=== PATIENT | male | born 1975 | race Caucasian/White ===

== ENCOUNTER 2020-06-13 14:51 | Inpatient (IN) | payer OTHER, SELFPAY ==
[2020-06-13] VITALS (16 sets, daily range): BP systolic 114–151; BP diastolic 73–98; PULSE 62–108; RESP 12–20; TEMP 36.2–36.8; O2SAT 94–99; BMI 26.4; BMI 25.8
--- NOTE | 2020-06-13 14:56 | NURSING ---
NO OLD EKGS
--- NOTE | 2020-06-13 15:03 | EKG12_ITS ---
Test Reason : NEURO Blood Pressure : / mmHG Vent. Rate : 091 BPM Atrial Rate : 091 BPM P-R Int : 160 ms QRS Dur : 092 ms QT Int : 364 ms P-R-T Axes : 064 057 035 degrees QTc Int : 447 ms Normal sinus rhythm with sinus arrhythmia Normal ECG Confirmed by JUANA MANDUJANO, AYAH ([id number]), restaurant expeditor ALEXIS COFFEY ([id number]) on 06/17/2020 12:57:43 PM Referred By: MARIFER Confirmed By:AYAH ARIAS MD
--- NOTE | 2020-06-13 15:03 | CT_ITS ---
We are attempting to reach an attending provider to discuss findings. An addendum with communication details will be sent when the communication is complete. STUDY: CT BRAIN WITHOUT CONTRAST REASON FOR EXAM: Male, 44 years old. RT LEG WEAKNESS LAST NIGHT AT 1700,SOB, HTN RADIATION DOSAGE (If Supplied By Facility): CTDIvol = ( 44.99 ) mGy, DLP = ( 796.11 ) mGycm TECHNIQUE: Transaxial CT imaging of the brain was performed without administration of intravenous contrast material. Individualized dose optimization techniques were used for this CT. COMPARISON: No relevant priors. FINDINGS: Normal soft tissue structures. Normal calvarium. Normal size ventricles and extra-axial spaces for the patient''s age. Normal white matter tracts of the cerebral hemispheres. Normal basal ganglia and thalami. Normal brainstem. Normal cerebellum. There is no intracranial hemorrhage. There are no findings of an acute ischemic infarction. Normal visualized paranasal sinuses. CT/Brain/Head without Contrast IMPRESSION: Normal unenhanced CT scan of the brain. Electronically Signed: Ramirez Flores MD at 15:34 EDT Tel , Service support ,
--- NOTE | 2020-06-13 15:03 | ED.RN ---
NEURO SX STARTED AT 5P LAST NIGHT.
--- NOTE | 2020-06-13 15:03 | ED.RN ---
DO NOT CALL [facility] PER PROVIDER.
--- NOTE | 2020-06-13 15:04 | CT_ITS ---
STUDY: CTA HEAD AND NECK WITH CONTRAST REASON FOR EXAM: Male, 44 years old. RT SIDED WEAKNESS RADIATION DOSAGE (If Supplied By Facility): CTDIvol = ( 16.99 ) mGy, DLP = ( 701.24 ) mGycm TECHNIQUE: CT angiography was performed with a multi-detector CT scanner. Data acquisition was obtained from the skull base through the vertex following intravenous administration of IV 100mL [id number]-[id number]. MIP images were reconstructed from the axial data set. Post-processing of the angiographic images was performed, with multiplanar reformation and 3D reconstruction. Individualized dose optimization techniques were used for this CT. COMPARISON: No relevant priors. FINDINGS: Normal bilateral petrous carotid arteries. Normal right cavernous carotid artery with a normal supraclinoid bifurcation. Normal left cavernous carotid artery with a normal supraclinoid bifurcation. Normal right A1 segments of the anterior cerebral artery. Normal left A1 segments of the anterior cerebral artery. Normal intact anterior communicating artery (ACOM). Normal bilateral A2 segments of the anterior cerebral arteries. Normal right M1 and M2 segments of the middle cerebral arteries, with a normal M1 bifurcation. Normal left M1 and M2 segments of the middle cerebral arteries, with a normal M1 bifurcation. Normal right posterior communicating artery (PCOM). Normal left posterior communicating artery (PCOM). Normal bilateral vertebral arteries. Normal basilar artery with a normal basilar bifurcation. The visualized bilateral superior cerebellar (SCA) arteries are normal. Normal bilateral P1, P2 and visualized P3 segments of the posterior cerebral arteries. There is no demonstrated aneurysm of the [place]. There is no demonstrated abnormality of the visualized brain. AORTIC ARCH: Normal visualized aortic arch. Normal origins of the brachiocephalic, left common carotid, and left subclavian arteries. RIGHT CAROTID ARTERIES: Normal right common carotid artery (CCA). Normal right common carotid bulb. Normal origin of the right internal carotid (ICA) artery without a hemodynamically significant stenosis. Normal visualized cervical portion of the right internal carotid artery. Normal origin of the right external carotid artery (ECA). LEFT CAROTID ARTERIES: Normal left common carotid artery (CCA). Normal left common carotid bulb. Normal origin of the left internal carotid (ICA) artery without a hemodynamically significant stenosis. Normal visualized cervical portion of the left internal carotid artery. Normal origin of the left external carotid artery (ECA). VERTEBRAL ARTERIES: Normal bilateral vertebral arteries. CT/CTA Head AND Neck W/ Contrast IMPRESSION: Normal CTA Head and neck with contrast. Electronically Signed: Ramirez Flores MD at 15:44 EDT Tel , Service support ,
--- NOTE | 2020-06-13 15:07 | ED.VIS.GEN ---
History of Present Illness Chief Complaint: Neuro S/Sx Informant: Patient, Family Narrative: Patient is a 44-year-old male with a past medical history of hypertension, diabetes, hyperlipidemia who presents to the emergency department for right-sided weakness and partial loss of sensation. He states that this occurred around 5 PM last night. He states he was getting out of his truck whenever he had difficulty moving it. He feels like he has to think about moving the leg very hard for her to actually move. He has been slightly dragging it. He feels like his right arm is also slightly weak. He does have sensation of both right upper and lower extremity but feels it is slightly decreased. Has never had this happen before in the past. He denies any headache, vision changes. He believes last night he had a little bit of slurred speech but this has since resolved. He denies any recent illnesses including any cough, cold, congestion. No fevers or chills. No nausea/vomiting or diarrhea. No urinary symptoms. Past Medical History - Allergies and Home Meds Allergies/Adverse Reactions: Allergies nickel Adverse Reaction (Verified 06/13/20 14:55) PT UNSURE OF REACTION Primary Care Physician: Bhavik Ortega [Primary Care Provider] - Prior records reviewed: Yes Past Medical History: - - Hypertension, hyperlipidemia, diabetes Surgical History: - - Deviated septum repair Smoking Status: Former smoker - Quit 2 months ago Alcohol: Occasional - Drinks 3-5 beers per night Drugs: None - Family History Maternal Family History: Reports: Cancer, Heart Disease, Stroke Paternal Family History: Reports: Cancer, Heart Disease, Stroke Review of Systems All systems negative except as indicated General: Denies: Chills, Fever, Sweats Eyes: Denies: Visual changes - bilaterally, Diplopia ENT: Denies: Rhinorrhea, Sore throat Cardiovascular: Denies: Chest pain, Palpitations Respiratory: Denies: Dyspnea, Cough, Dyspnea on exertion Gastrointestinal: Denies: Abdominal pain, Nausea, Vomiting, Diarrhea Genitourinary: Denies: Dysuria, Hematuria, Frequency Musculoskeletal: Denies: Back pain, Extremity Pain Skin: Denies: Rash, Wounds Neurological: Reports: Numbness. Denies: Headache, Weakness Physical Exam Vital Signs/Narrative: Vital Signs Temp Pulse Resp BP Pulse Ox 06/13/20 15:02 93 20 H 135/92 H 94 06/13/20 14:55 97.7 F L 108 H 12 134/98 H 96 Inital Vital Signs reviewed: Yes General: Well nourished, Well developed, No Acute Distress Head: Normocephalic, Atraumatic Eyes: Perrl, EOMI ENT: Moist mucous membranes, No rhinorrhea Neck: Supple, Nontender Cardiovascular: Regular rate, Regular rhythm, No murmurs Respiratory: No distress, CTA bilaterally, Chest nontender Abdomen: Soft, Nontender, Nondistended, Normal bowel sounds Back: Nontender, Normal Inspection Extremities: Nontender, No edema Skin: Normal color, No rash Neurological: Alert, Oriented x3, Cranial nerves II-XII grossly intact, - - Feels sensation on the right arm and leg is slightly decreased compared to the left. Has 5 out of 5 muscle strength but does get shaky when holding it up for more than 5 seconds on the right side but not left. No discoordination present.. Negative for: Left side facial droop, Right side facial droop Psychological: Normal affect, Normal Mood Diagnostic/Tx/Re-eval - EKG Initial EKG Interpretation: - - Rate of 91 bpm and normal sinus rhythm. Normal intervals. Normal axis. No ST elevations or depressions appreciated. No T wave abnormalities. - Medical Decision Making Patient presents to the ED for strokelike symptoms. Had right-sided weakness/loss of sensation. Some slurred speech yesterday but this since resolved. Upon arrival to the ED mildly tachycardic but otherwise normal vital signs. In no acute distress. He has a NIH score of 1 for mild sensation lost as and it is less sharp of a sensation. No other significant focal neurological deficit appreciated. Basic lab work and CT imaging being obtained. Patient not a TPA candidate given the fact he is out of the window. Patient did not want to stay in the hospital but he was agreeable to staying for an MRI. Unfortunately this was significant for acute lacunar infarct in the left basal ganglia and deep parietal white matter. Patient was made aware of this and is now agreeable to staying in the hospital. He otherwise has been stable throughout ED stay. Will bring him to the hospital for further evaluation and management. ED Disposition - Plan for ED Patient: Disposition: Acute Care Hospital [facility] Diagnosis: Acute CVA (cerebrovascular accident) Referrals: Bhavik Ortega [Primary Care Provider] -
[2020-06-13 15:10] LABS: Bedside Glucose 186 mg/dL (70-110)
--- NOTE | 2020-06-13 15:14 | NURSING ---
1511 STROKE ALERT CALLED
[2020-06-13 15:19] LABS: Absolute Lymphocyte Count 1.94 X10^3/uL (0.83-4.51); Absolute Neutrophil Count 3.2 X10^3/uL (2.0-7.7); Basophil# 0.04 X10^3/uL; Basophil% 0.7 % (0-1); Eosinophil# 0.06 X10^3/uL; Hematocrit 46.3 % (40-54); Lymphocyte # 1.94 X10^3/ul (4.0); Lymphocyte % 32.2 % (19-41); Mean Corp Hgb Conc 34.6 g/dL (32-36); Mean Corpuscular Hgb 33.3 pg (27.0-32.0); Mean Corpuscular Volume 96.3 fL (80-94); Mean Platelet Vol. 9.7 fl (6.2-12.0); Monocyte# 0.75 X10^3/uL; Monocyte% 12.5 % (0-10); NRBC Flagged by Analyzer 0 % (0-5); Neutrophil % 53.1 % (47-70); Platelet Count 236 K/mm3 (150-450); RBC Distribution Width CV 11.9 % (11.6-14.6); RBC Distribution Width SD 41.8 fl (35.1-43.9); Red Blood Count 4.81 M/mm3 (4.6-6.2)
--- NOTE | 2020-06-13 15:25 | NURSING ---
FACESHEET FAXED TO [facility]
[2020-06-13 15:28] LABS: Partial Thromboplast Time 21.7 Seconds (24.1-36.2); Prothrombin Time (Protime)PT. 12.6 SECONDS (11.7-14.9)
--- NOTE | 2020-06-13 15:39 | CHAPLAIN ---
Type of Pastoral Visit ___ Initial Visit ___ Follow-up Visit ___ On-call Visit ___ General Patient Visit ___ Spiritual Assessment ___ Family Conference ___ Bereavement _x__ Rapid Response ___ Code Blue ___ Other (describe below) Pastoral Care Referral From ___ Patient _x__ Family ___ Nurse ___ Physician ___ Application Consultant ___ Grades 1 Thru 6 Home Teacher ___ Other (describe below) Sacrament/Intervention _x__ Active listening ___ Anointing ___ Adventism ___ Bereavement ___ Communion ___ Marii exploration ___ ___ Life review ___ Prayer ___ Reconciliation ___ Sacrament of Sick _x__ Supportive presence ___ Wedding ___ Other (describe below) Pastoral Comments introduced self and role to krise of the patient as pt was in CT; georgie indicates pt is jain and would welcome support; georgie has already notified spray drier of pt; met pt himself when he returned to room; pt is talking and welcomes the supportive presence
[2020-06-13 15:53] LABS: Anion Gap 9 (5-15); BUN 22 mg/dL (7-18); BUN/Creat Ratio 28.5 RATIO (10-20); Calcium,Total 9.7 mg/dL (8.5-10.1); Chloride 106 mmol/L (98-107); Creatinine, Serum 0.77 mg/dL (0.70-1.30); EST Glomerular Filtration Rate 115 mL/min (>60); Est Glom Filt Rate - Afr Amer 139 mL/min (>60); Estimated Creatinine Clearance 115.97 ml/min; Glucose 185 mg/dL (74-106); Potassium 4.4 mmol/L (3.5-5.1); Sodium Level 139 mmol/L (136-145)
--- NOTE | 2020-06-13 15:56 | CM.ED ---
SOCIAL WORK Reason for Consult: Stroke Alert Met with patient and patient's fiance in room. Introduced role and reason for referral. Patient gave permission for this worker to speak openly with fiance present. Patient lives home with kris and is independent with ADLS. 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 Fiance states last night patient's speech seemed slurred. Patient states had issues forming words. Patient states completed a telehealth appointment today and was advised to come to ER. Patient reports diagnosis of OCD and is prescribed Paxil by primary care physician, Dr. Chioma Ortega. Patient states history of cocaine and acid in teen years. Patient reports current use of alcohol and reports drinks 3-4 beers/night. Patient does not view alcohol consumption as a problem. Patient denies any questions or concerns at this time. Work up being completed. This worker to remain available for needs. Nette Burgess, ANIMAL BEHAVIOURIST, [employer]
--- NOTE | 2020-06-13 15:58 | RAD_ITS ---
STUDY: X-RAY CHEST REASON FOR EXAM: Male, 44 years old. STROKE S/SX, RIGHT SIDED WEAKNESS TECHNIQUE: Single AP portable view of the chest. COMPARISON: None. FINDINGS: The lungs are clear and expanded. There is no demonstrated pleural abnormality. Normal size heart. Normal mediastinum and mauricio. Normal visualized pulmonary arteries. Normal visualized aortic arch and descending thoracic aorta. Normal visualized thoracic spine. Normal visualized ribs, clavicles, and shoulders. There is no demonstrated abnormality of the visualized soft tissue structures of the upper abdomen. RAD/Chest 1 View IMPRESSION: Normal x-ray examination of the chest. Electronically Signed: Ramirez Flores MD at 16:13 EDT Tel , Service support ,
[2020-06-13] MEDS: Aspirin 325 MG Tablet PO (16:07)
--- NOTE | 2020-06-13 16:20 | NURSING ---
DR LANDAVERDE FOR DR MENDES
--- NOTE | 2020-06-13 16:34 | MRI_ITS ---
We are attempting to reach an attending provider to discuss findings. An addendum with communication details will be sent when the communication is complete. STUDY: MRI BRAIN WITHOUT CONTRAST REASON FOR EXAM: Male, 44 years old. rt side deficiency, eval for stroke TECHNIQUE: Standardized multiplanar fat and water weighted pulse sequences were obtained. COMPARISON: CT head 06/13/2020. FINDINGS: There is no intracranial mass, mass effect, or midline shift. No acute hemorrhage or territorial infarct. There is restricted diffusion in the left basal ganglia and deep parietal white matter consistent with acute lacunar infarct. Normal size of the ventricles and extra-axial spaces for the patient''s age. Normal white matter tracts of the supratentorial brain. There is no extra-axial fluid accumulation. Normal flow voids within the major intracranial circulation suggesting patency by spin echo criteria. Normal sella turcica, pituitary gland, infundibular stalk, optic chiasm and hypothalamus. Normal midbrain, zach and medulla. Normal cerebellum. Normal basal cisterns. Normal bilateral temporal bones. Normal bilateral internal auditory canals. No demonstrated orbital abnormality, within the constraints of a routine brain study. Normal visualized paranasal sinuses. Normal calvarium and skull base. Normal visualized soft tissue structures. MRI/Brain without Contrast IMPRESSION: 1. Acute lacunar infarct in the left basal ganglia and deep parietal white matter. NSC created by Fely Hdez MD, at 7:44 PM on 06/13/2020. Electronically Signed: Fely Hdez MD at 19:47 EDT Tel , Service support ,
--- NOTE | 2020-06-13 16:47 | PCM.HP.STD ---
Problem List (1) HTN (hypertension) Status: Chronic (2) HLD (hyperlipidemia) Status: Chronic (3) Type 2 diabetes mellitus Status: Chronic (4) Psoriasis Status: Chronic (5) OCD (obsessive compulsive disorder) Status: Chronic (6) GERD (gastroesophageal reflux disease) Status: Chronic (7) Tobacco dependence Status: Chronic (8) Alcohol dependence Status: Chronic History of Present Illness Date of Admission: 06/13/20 Chief Complaint: Right leg heaviness. The patient is a 44 year old M who presents to the emergency room due to right leg heaviness which began last night around 5 PM. Patient states he was able to ambulate without difficulty however felt like his right leg was heavy. His significant other at bedside reports she noticed patient slurring his words for approximately 30 to 45 minutes however patient states he did not notice this. Patient states his right arm felt mildly clumsy at work as he was pressing wrong buttons at his computer. He denies other neuro symptoms or focal deficits. He has a past medical history of hypertension, hyperlipidemia, type 2 diabetes mellitus, psoriasis, GERD, OCD, tobacco dependence with recent cessation, alcohol dependence. Patient states he smoked 1 pack/day since the age of 13 and quit 2 months ago. He also reports daily alcohol use typically 3-5 drinks per day with heavier use on the weekends. Past Medical History Past Medical History (Chronic Problems): Chronic Problems HTN (hypertension) (Chronic) HLD (hyperlipidemia) (Chronic) Type 2 diabetes mellitus (Chronic) Psoriasis (Chronic) OCD (obsessive compulsive disorder) (Chronic) GERD (gastroesophageal reflux disease) (Chronic) Tobacco dependence (Chronic) Alcohol dependence (Chronic) Allergies nickel Adverse Reaction (Verified 06/13/20 14:55) PT UNSURE OF REACTION Home Medications: Ambulatory Orders Medication Instructions Recorded Adalimumab [Humira Pen] 40 mg SQ UD 06/13/20 Atorvastatin Calcium 80 mg PO DAILY 06/13/20 Liraglutide [Victoza] 1.8 mg SQ DAILY 06/13/20 Lisinopril [Zestril] 30 mg PO DAILY 06/13/20 Metformin HCl 1,000 mg PO BID 06/13/20 Omeprazole [Prilosec] 20 mg PO DAILY 06/13/20 Paroxetine HCl [Paxil] 30 mg PO DAILY 06/13/20 Saxagliptin HCl [Onglyza] 5 mg PO DAILY 09/10/20 Surgical History: - - Deviated septum repair Psychiatric History: - - OCD Lives: Spouse/ Significant Other Smoking Status: Former smoker - Quit 2 months ago Alcohol: Heavy Drugs: None - *Family History Maternal History Items: Cancer, Heart Disease, Stroke Paternal History Items: Cancer, Heart Disease, Stroke Review of Systems Constitutional: Denies: Chills, Fever, Weight Change HEENT: Denies: Head Aches, Sinus Congestion, Sinus Drainage Cardiovascular: Denies: Chest Pain, Palpitations Respiratory: Denies: Cough, Shortness of breath at rest, Sputum production Gastrointestinal: Denies: Abdominal Pain, Nausea, Vomiting Genitourinary: Denies: Dysuria Musculoskeletal: Denies: Joint Pain, Joint Tenderness Skin: Denies: Rash, Wounds Neurological: Reports: Change in Speech, - - Right leg heaviness, right arm clumsiness. Denies: Balance problems, Confusion, Focal weakness, Numbness, Tingling Psychiatric: Reports: - - OCD. Denies: Anxiety, Depression, Homicidal Ideations, Suicidal Ideations Hematologic/ Lymphatic: Denies: Easy Bruising, Easy Bleeding VTE Information - Inpt Only VTE Present on Admission: No VTE Mechan Device Prophylaxis: None VTE Pharm Prophylaxis ordered?: Yes - Physical Exam Vitals/I&O's: Vital Signs Temp Pulse Resp BP Pulse Ox 97.7 F L 83 16 130/73 H 99 06/13/20 15:11 06/13/20 16:03 06/13/20 16:03 06/13/20 16:03 06/13/20 16:03 Oxygen Flow Rate (L/min) 2 Oxygen Delivery Method Room Air Weight: 173 lb 15.115 oz Body Mass Index (BMI) 26.4 Finger Stick Blood Glucose 186 General: Alert, Oriented x3, Cooperative HEENT: Atraumatic, PERRLA, EOMI, Normocephalic Neck: Supple, No JVD, Negative Carotid Bruits Lungs: Clear to auscultation, Normal air movement Cardiovascular: Regular rate, No murmurs Abdomen: Bowel Sounds Present, Soft, Non Tender Extremities: No clubbing, No cyanosis, No edema, Capillary Refill Less than 3 Seconds Skin: No rashes, No breakdown Musculoskeletal: No Tenderness to Palpation of Joints or Extremities Neurological: Cranial nerves II-XII grossly intact, Neuro grossly intact Psych/Mental Status: Normal Affect, Appropriate Laboratory Results 06/13/20 14:55: WBC 6.0, RBC 4.81, Hgb 16.0, Hct 46.3, MCV 96.3 H, MCH 33.3 H, MCHC 34.6, RDW Std Deviation 41.8, RDW Coeff of Kayleen 11.9, Plt Count 236, MPV 9.7, Immature Gran % (Auto) 0.500, Neut % (Auto) 53.1, Lymph % (Auto) 32.2, [place] % (Auto) 12.5 H, Eos % (Auto) 1.0, Baso % (Auto) 0.7, Absolute Neuts (auto) 3.2, Absolute Lymphs (auto) 1.94, Nucleated RBC % 0 06/13/20 14:55: PT 12.6, INR 1.0, APTT 21.7 L 06/13/20 14:55: Sodium 139, Potassium 4.4, Chloride 106, Carbon Dioxide 24.0, Anion Gap 9, BUN 22 H, Creatinine 0.77, Estim Creat Clear Calc 115.97, Est GFR (MDRD) Af Amer 139, Est GFR (MDRD) Non-Af 115, BUN/Creatinine Ratio 28.5 H, Glucose 185 H, Calcium 9.7, Troponin I < 0.015 06/13/20 15:06: POC Glucose 186 H Assessment/Plan 1. Right lower extremity heaviness-brain CT and head and neck CTA unremarkable. Obtain MRI of brain. If MRI of brain negative for CVA, plan on discharge from ER. If MRI abnormal, will admit for further CVA work-up including echocardiogram, PT/OT/ST. Aspirin, statin. 2. Hypertension-stable, continue lisinopril. 3. Hyperlipidemia-continue statin. 4. Type 2 diabetes [id number] with sliding scale insulin. Check hemoglobin A1c. 5. GERD-continue PPI. 6. OCD-continue Paxil. 7. Alcohol dependence- reports 3-5 drinks per day with heavier use on weekends. Thiamine, folic acid, multivitamin supplementation. CIWA. 8. Tobacco dependence-reports 1 pack/day smoking history since age of 13, quit 2 months ago. DVT prophylaxis- Lovenox sc This patient was seen by JENNIFER Garcia under the supervision of Dr. Aguilar.
--- NOTE | 2020-06-13 20:50 | ECHOD_ITS ---
Reason For Study: Arrhythmia, Acute CVA Procedure This was a 2D Doppler, Color Flow transthoracic echocardiogram. Exam performed portable in patient room. Left Ventricle The estimated ejection fraction is 60 %. No evidence for diastolic dysfunction. Left ventricular systolic function is normal. Right Ventricle Normal systolic function. Atria Normal left atrium. Normal right atrium. Bubble contrast study negative for right to left interatrial shunt. Mitral Valve Trivial mitral valve insufficiency. Tricuspid Valve Unable to estimate RV systolic pressure due to inadequate jet, pulmonary artery pressure probably normal. Mild tricuspid valve insufficiency. Aortic Valve Normal aortic valve. Pulmonic Valve No pulmonic valve insufficiency. Great Vessels Normal aortic root. Pericardium/Pleural No pericardial effusion. Medication Performed a rapid injection of agitated mix of 9 cc saline and 1cc air to assess for atrial septal defect. MMode/2D Measurements & Calculations LVIDd: 4.4 cm IVSd: 0.94 cm Ao root diam: 3.1 cm LVIDs: 3.0 cm LVPWd: 0.87 cm RVDd: 3.1 cm FS: 33.5 % LAV(MOD-bp): 31.9 ml LVAd ap4: 28.8 cm2 SV(MOD-sp4): 49.5 ml LAV(MOD-bp) Indexed: 16.8 ml/m2 EDV(MOD-sp4): 78.1 ml LAV(MOD-sp2): 21.0 ml EDV(sp4-el): 80.8 ml LAV(MOD-sp4): 31.9 ml LVAs ap4: 15.9 cm2 ESV(MOD-sp4): 28.6 ml ESV(sp4-el): 29.1 ml EF(MOD-sp4): 63.3 % EF(sp4-el): 64.0 % SV(sp4-el): 51.7 ml LA A4 area: 14.1 cm2 LA dimension(2D): 3.2 cm RA A4 area: 13.6 cm2 Doppler Measurements & Calculations MV E max kirk: 68.4 cm/sec Lat Peak E' Kirk: 17.0 cm/sec Med Peak E' Kirk: 11.6 cm/sec MV A max kirk: 46.5 cm/sec E/E' lat: 4.0 E/E' med: 5.9 MV E/A: 1.5 Ao V2 max: 133.2 cm/sec LV V1 max: 106.9 cm/sec PA V2 max: 114.1 cm/sec Ao max P.1 mmHg LV V1 max P.6 mmHg TR max kirk: 214.6 cm/sec TR max P.4 mmHg Interpretation Summary The estimated ejection fraction is 60 %. No evidence for diastolic dysfunction. Left ventricular systolic function is normal. Normal systolic function. No obvious intra-cardiac thrombus Bubble contrast study negative for right to left interatrial shunt. Ordering Physician: Hina Aguilar Referring Physician: Jordan Gutierres Performed By: Sariah Mullen RDCS
[2020-06-13 21:18] LABS: Magnesium 1.7 mg/dL (1.6-2.6); Phosphorus 3.6 mg/dL (2.5-4.9)
[2020-06-13] MEDS: 0.9% Normal Saline 1,000 ML 100 ML IV (21:48)
[2020-06-13] MEDS: Insulin Lispro 100 UNIT/ML INSULN.PEN SC (21:58)
[2020-06-13 22:51] LABS: Bedside Glucose 230 mg/dL (70-110)
[2020-06-14] VITALS (9 sets, daily range): BP systolic 127–138; BP diastolic 69–94; PULSE 58–90; RESP 16–18; TEMP 36.6–37; O2SAT 90–97; BMI 25.8
[2020-06-14] MEDS: Insulin Lispro 100 UNIT/ML INSULN.PEN SC ×2 (06:34→13:04)
[2020-06-14 06:55] LABS: Absolute Lymphocyte Count 1.71 X10^3/uL (0.83-4.51); Absolute Neutrophil Count 2.2 X10^3/uL (2.0-7.7); Basophil# 0.03 X10^3/uL; Basophil% 0.6 % (0-1); Eosinophil# 0.12 X10^3/uL; Eosinophils% 2.6 % (0-5); Hematocrit 43.8 % (40-54); Hemoglobin 14.7 g/dL (13.0-16.5); Lymphocyte # 1.71 X10^3/ul (4.0); Lymphocyte % 36.6 % (19-41); Mean Corp Hgb Conc 33.6 g/dL (32-36); Mean Corpuscular Hgb 32.5 pg (27.0-32.0); Mean Corpuscular Volume 96.7 fL (80-94); Mean Platelet Vol. 9.5 fl (6.2-12.0); Monocyte# 0.59 X10^3/uL; Monocyte% 12.6 % (0-10); NRBC Flagged by Analyzer 0 % (0-5); Neutrophil # 2.19 X10^3/uL (2.7-7.7); Platelet Count 212 K/mm3 (150-450); RBC Distribution Width CV 11.9 % (11.6-14.6); RBC Distribution Width SD 42.5 fl (35.1-43.9); Red Blood Count 4.53 M/mm3 (4.6-6.2); White Blood Count 4.7 K/mm3 (4.4-11.0)
[2020-06-14 06:56] LABS: Bedside Glucose 186 mg/dL (70-110)
[2020-06-14] MEDS: 0.9% Normal Saline 1,000 ML 100 ML IV (07:32)
[2020-06-14 07:38] LABS: ALB/GLOB Ratio 1.1 RATIO (0.9-2.4); AST(SGOT) 24 U/L (15-37); Alanine Aminotransfer ALT/SGPT 34 U/L (16-61); Albumin, Serum 3.3 g/dL (3.2-5.0); Alkaline Phosphatase 38 U/L (45-117); Anion Gap 8 (5-15); BUN 23 mg/dL (7-18); BUN/Creat Ratio 43.3 RATIO (10-20); Calcium,Total 8.5 mg/dL (8.5-10.1); Chloride 105 mmol/L (98-107); Cholesterol 224 mg/dL (200); Creatinine, Serum 0.53 mg/dL (0.70-1.30); EST Glomerular Filtration Rate 177 mL/min (>60); Est Glom Filt Rate - Afr Amer 214 mL/min (>60); Estimated Creatinine Clearance 168.49 ml/min; Glucose 181 mg/dL (74-106); High Density Lipoprotein 46 mg/dL; Potassium 4.1 mmol/L (3.5-5.1); Protein, Total 6.3 g/dL (6.4-8.2); Sodium Level 139 mmol/L (136-145); T4 Free Direct 0.99 ng/dL (0.76-1.46); Thyroid Stim Hormone (TSH) 2.52 uIU/mL (0.358-3.74); Triglycerides 420 mg/dL
[2020-06-14 07:39] LABS: Hemoglobin A1c 9.2 % (3.8-5.6)
--- NOTE | 2020-06-14 07:46 | TELEMED_ITS ---
[facility] has confirmed receipt of a request for visit. This document confirms receipt of the order initiating the consult. To find the results of the consultation, please view the patient's reports for the scanned Telemed Consult.
[2020-06-14] MEDS: Folic Acid 1 MG Tablet PO (08:24)
[2020-06-14] MEDS: Thiamine Hydrochloride 100 MG Tablet PO (08:24)
[2020-06-14] MEDS: Aspirin 81 MG TAB.CHEW PO (08:24)
[2020-06-14] MEDS: Multivitamins,Ther W-Minerals Tablet 1 TABLET PO (08:24)
[2020-06-14] MEDS: Pantoprazole Sodium 20 MG Tablet PO (08:24)
[2020-06-14] MEDS: Clopidogrel Bisulfate 300 MG Tablet PO (11:03)
--- NOTE | 2020-06-14 11:18 | DCINST_ITS ---
- Discharge Diagnoses Current Active Problems: Current Active and Chronic Problems HTN (hypertension) (Chronic) HLD (hyperlipidemia) (Chronic) Type 2 diabetes mellitus (Chronic) Psoriasis (Chronic) OCD (obsessive compulsive disorder) (Chronic) GERD (gastroesophageal reflux disease) (Chronic) Tobacco dependence (Chronic) Alcohol dependence (Chronic) Acute CVA (cerebrovascular accident) (Acute) You will use the following diet at home:: Calorie/Carbohydrate Controlled (specify 1200, 1400, etc), Cardiac Discharge Activity: Return to Normal Activity Call your doctor if you observe: Shortness of breath, Dizziness, Fainting spells, Chest pain Additional Instructions: Recommend increasing long-acting metformin over the next several weeks if able to tolerate from GI/diarrhea standpoint. Allergies/Adverse Reactions: Allergies nickel Adverse Reaction (Verified 06/13/20 14:55) PT UNSURE OF REACTION Medications to take at Discharge Adalimumab [Humira Pen] 40 mg SQ UD 06/13/20 Atorvastatin Calcium 80 mg PO DAILY 06/13/20 Liraglutide [Victoza] 1.8 mg SQ DAILY 06/13/20 Omeprazole [Prilosec] 20 mg PO DAILY 06/13/20 Paroxetine HCl [Paxil] 30 mg PO DAILY 06/13/20 Saxagliptin HCl [Onglyza] 5 mg PO DAILY 06/13/20 Aspirin E.C. [Ecotrin] 81 mg PO DAILY@0800 #30 tab 06/14/20 Clopidogrel Bisulfate [Plavix] 75 mg PO DAILY #21 tab 06/14/20 Lisinopril 40 mg PO DAILY #30 tab 06/14/20 metFORMIN (XR) [Glucophage Xr] 500 mg PO DAILY #14 tab 06/14/20 The following prescriptions were given: Aspirin E.C. [Ecotrin] 81 mg PO DAILY@0800 #30 tab Transmission Status: Pending to [id number] metFORMIN (XR) [Glucophage Xr] 500 mg PO DAILY #14 tab Transmission Status: Pending to [id number] Lisinopril 40 mg PO DAILY #30 tab Transmission Status: Pending to [id number] Clopidogrel Bisulfate [Plavix] 75 mg PO DAILY #21 tab Transmission Status: Pending to [id number] Primary Care Physician: Bhavik Ortega [Primary Care Provider] - Please follow up with your Primary Care Physician in: 1 Week Test Results: Test results from this visit will be discussed in further detail at your follow- up appointment, if applicable. Please Follow Up With: Umang Cadet MD - Neurology When: 2 Weeks Proposed Discharge Date: 06/14/20
--- NOTE | 2020-06-14 11:21 | PCM.DC.SUM ---
<Gisele Gonzalez MORTUARY OPERATIONS MANAGER - Last Filed: 06/14/20 11:34> Discharge Date and Diagnosis Date of Admission: 06/13/20 Date of Discharge: 06/14/20 - Primary Discharge Diagnosis Acute Problems: Active Problems 1. Acute CVA 2. Hypertension 3. Hyperlipidemia 4. Type 2 diabetes mellitus 5. GERD 6. OCD 7. Alcohol dependence 8. Tobacco dependence - Secondary Discharge Diagnosis Chronic Problems: Chronic Problems HTN (hypertension) (Chronic) HLD (hyperlipidemia) (Chronic) Type 2 diabetes mellitus (Chronic) Psoriasis (Chronic) OCD (obsessive compulsive disorder) (Chronic) GERD (gastroesophageal reflux disease) (Chronic) Tobacco dependence (Chronic) Alcohol dependence (Chronic) Hospital Course and Treatment Imaging Results: Diagnostic Data Brain CT 06/13/20 15:03 IMPRESSION: Normal unenhanced CT scan of the brain. Electronically Signed: Ramirez Flores MD at 15:34 EDT Tel , Service support , ADDENDUM: 06/13/20 1550 IMPRESSION: Normal unenhanced CT scan of the brain. N.B. : The above information has been verbally conveyed by Ramirez Flores MD to WON MENDES MD, on 06/13/2020 15:43:11 (ET). Electronically Signed: Ramirez Flores MD at 15:34 EDT Tel , Service support , Head/Neck CTA 06/13/20 15:04 IMPRESSION: Normal CTA Head and neck with contrast. Electronically Signed: Ramirez Flores MD at 15:44 EDT Tel , Service support , Chest X-Ray 06/13/20 15:58 IMPRESSION: Normal x-ray examination of the chest. Electronically Signed: Ramirez Flores MD at 16:13 EDT Tel , Service support , Brain MRI 06/13/20 16:34 IMPRESSION: 1. Acute lacunar infarct in the left basal ganglia and deep parietal white matter. NSC created by Fely Hdez MD, at 7:44 PM on 06/13/2020. Electronically Signed: Fely Hdez MD at 19:47 EDT Tel , Service support , ADDENDUM: 06/13/202050 IMPRESSION: 1. Acute lacunar infarct in the left basal ganglia and deep parietal white matter. NSC created by Fely Hdez MD, at 7:44 PM on 06/13/2020. N.B. : The above information has been verbally conveyed by Fely Hdez MD to Dr. Won Mendes MD, on 06/13/2020 20:44:09 (ET). Electronically Signed: Fely Hdez MD at 19:47 EDT Tel , Service support , ADDENDUM: 06/13/202054 SOC neurology Operations: None Procedures: 2-D Echocardiogram Summary of Care Provided: The patient is a 44 year old M admitted 06/13/2020 due to right leg heaviness and right arm clumsiness. 1. Acute CVA-brain CT and head and neck CTA unremarkable. MRI of brain demonstrates acute lacunar infarct in the left basal ganglia and deep parietal white matter. SOC neurology consult obtained. Continue dual antiplatelet therapy with aspirin and Plavix for 21 days then transition to aspirin only. Continue high-dose statin. Echocardiogram pending and will be reviewed prior to discharge. Follow-up with neurology in 2 weeks. 2. Hypertension-stable, continue lisinopril 40 mg daily. 3. Hyperlipidemia-continue high-dose statin. 4. Type 2 diabetes mellitus-Hemoglobin A1c 9.2%. Patient states that he has not been taking his metformin due to diarrhea. He states when he does take it it is typically once daily and he forgets his afternoon dose. Discussed with patient initiating metformin XR 500 mg daily and increasing this as outpatient as patient if able to tolerate from GI standpoint. Recommend continuing once daily metformin given patient reports difficulty with twice daily compliance. Recommend repeat hemoglobin A1c following restarting metformin. 5. GERD-continue PPI. 6. OCD-continue Paxil. 7. Alcohol dependence- reports 3-5 drinks per day with heavier use on weekends. No evidence of withdrawal during admission. 8. Tobacco dependence-reports 1 pack/day smoking history since age of 13, quit 2 months ago. Encouraged continued cessation. General: Alert, Oriented x3, Cooperative HEENT: Atraumatic, PERRLA, EOMI, Normocephalic Neck: Supple, No JVD, Negative Carotid Bruits Lungs: Clear to auscultation, Normal air movement Cardiovascular: Regular rate, No murmurs Abdomen: Bowel Sounds Present, Soft, Non Tender Extremities: No clubbing, No cyanosis, No edema, Capillary Refill Less than 3 Seconds Skin: No rashes, No breakdown Musculoskeletal: No Tenderness to Palpation of Joints or Extremities Neurological: Cranial nerves II-XII grossly intact, Neuro grossly intact Psych/Mental Status: Normal Affect, Appropriate Patient seen and examined prior to discharge. Physical assessment as noted above. Patient is stable for discharge with follow up recommendations as noted above. This patient was seen by JENNIFER Garcia under the supervision of Dr. Jacinto. - Physical Exam Vitals/I&O's: Vital Signs Temp Pulse Resp BP Pulse Ox 98.6 F 90 18 129/94 H 96 06/14/20 10:50 06/14/20 10:50 06/14/20 10:50 06/14/20 10:50 06/14/20 10:50 Oxygen Flow Rate (L/min) 2 Oxygen Delivery Method Room Air Weight: 169 lb 12.095 oz Body Mass Index (BMI) 25.8 Finger Stick Blood Glucose 186 Intake and Output for Last 24 Hours 06/12/20 06/13/20 06/14/20 23:59 23:59 23:59 Intake Total 218.33 / 218.33 1306.67 / 1306.67 Output Total 0 / 0 Balance 218.33 / 218.33 1306.67 / 1306.67 Laboratory Results 06/13/20 14:55: WBC 6.0, RBC 4.81, Hgb 16.0, Hct 46.3, MCV 96.3 H, MCH 33.3 H, MCHC 34.6, RDW Std Deviation 41.8, RDW Coeff of Kayleen 11.9, Plt Count 236, MPV 9.7, Immature Gran % (Auto) 0.500, Neut % (Auto) 53.1, Lymph % (Auto) 32.2, Clay % (Auto) 12.5 H, Eos % (Auto) 1.0, Baso % (Auto) 0.7, Absolute Neuts (auto) 3.2, Absolute Lymphs (auto) 1.94, Nucleated RBC % 0 06/13/20 14:55: PT 12.6, INR 1.0, APTT 21.7 L 06/13/20 14:55: Sodium 139, Potassium 4.4, Chloride 106, Carbon Dioxide 24.0, Anion Gap 9, BUN 22 H, Creatinine 0.77, Estim Creat Clear Calc 115.97, Est GFR (MDRD) Af Amer 139, Est GFR (MDRD) Non-Af 115, BUN/Creatinine Ratio 28.5 H, Glucose 185 H, Calcium 9.7, Troponin I < 0.015 06/13/20 14:55: Phosphorus 3.6, Magnesium 1.7 06/13/20 15:06: POC Glucose 186 H 06/13/20 21:16: Ethyl Alcohol 4.0 06/13/20 21:55: POC Glucose 230 H 06/14/20 06:22: WBC 4.7, RBC 4.53 L, Hgb 14.7, Hct 43.8, MCV 96.7 H, MCH 32.5 H, MCHC 33.6, RDW Std Deviation 42.5, RDW Coeff of Kayleen 11.9, Plt Count 212, MPV 9.5, Immature Gran % (Auto) 0.600, Neut % (Auto) 47.0, Lymph % (Auto) 36.6, Clay % (Auto) 12.6 H, Eos % (Auto) 2.6, Baso % (Auto) 0.6, Absolute Neuts (auto) 2.2, Absolute Lymphs (auto) 1.71, Nucleated RBC % 0 06/14/20 06:22: Sodium 139, Potassium 4.1, Chloride 105, Carbon Dioxide 26.0, Anion Gap 8, BUN 23 H, Creatinine 0.53 L, Estim Creat Clear Calc 168.49, Est GFR (MDRD) Af Amer 214, Est GFR (MDRD) Non-Af 177, BUN/Creatinine Ratio 43.3 H, Glucose 181 H, Calcium 8.5, Total Bilirubin 0.30, AST 24, ALT 34, Alkaline Phosphatase 38 L, Total Protein 6.3 L, Albumin 3.3, Globulin 3.0, Albumin/Globulin Ratio 1.1, Triglycerides 420 H, Cholesterol 224 H, LDL Cholesterol TNP, VLDL Cholesterol TNP, HDL Cholesterol 46, TSH 2.52, Free T4 0.99 06/14/20 06:22: Hemoglobin A1c 9.2 H 06/14/20 06:32: POC Glucose 186 H Current Medications Acetaminophen (Tylenol) 650 mg PO Q6H PRN PRN PRN Reason: Pain Score 1-10/Temp > 100.7 F Al Hydroxide/Mg Hydroxide (Mylanta Ii) 30 ml PO Q6H PRN PRN PRN Reason: Gastric Burning Albuterol Sulfate (Ventolin Aerosols) 2.5 mg INHALATION Q2H PRN PRN PRN Reason: Dyspnea, wheezing Aspirin (Aspirin, Baby) 81 mg PO DAILY@0800 [facility] Last Admin: 06/14/20 08:24 Dose: 81 mg Documented by: Atorvastatin Calcium (Lipitor) 80 mg PO QHS [facility] Enoxaparin Sodium (Lovenox) 40 mg SC DAILY [facility] Last Admin: 06/14/20 11:01 Dose: Not Given Documented by: Folic Acid (Folic Acid) 1 mg PO DAILY@0800 [facility] Stop: 06/16/20 08:01 Last Admin: 06/14/20 08:24 Dose: 1 mg Documented by: Guaifenesin (Robitussin) 20 ml PO Q4H PRN PRN PRN Reason: COUGH Hydralazine HCl (Apresoline Iv) 5 mg IV Q30M PRN PRN Reason: to maintain BP goals Sodium Chloride () 250 mls @ 15 mls/hr IV .[id number] PRN PRN Reason: Saline Flush Sodium Chloride () 250 mls @ 15 mls/hr IV .[id number] PRN PRN Reason: Additional IVPB Infusion Insulin Human Lispro (Humalog Kwikpen (Bkc)) 0 unit SC [facility]; Protocol Last Admin: 06/14/20 06:34 Dose: 1 units Documented by: Labetalol HCl (Trandate) 10 - 20 mg IV Q10M PRN PRN PRN Reason: to Maintain BP Goals Lorazepam (Ativan) 2 mg PO Q2H PRN PRN; Protocol PRN Reason: CIWA score > 8 but <15 Lorazepam (Ativan) 2 mg PO UD PRN; Protocol PRN Reason: CIWA score >/=15. Lorazepam (Ativan) 2 mg IV Q2H PRN PRN; Protocol PRN Reason: CIWA score > 8 but <15 Lorazepam (Ativan) 2 mg IV UD PRN; Protocol PRN Reason: CIWA score >/=15. Magnesium Hydroxide (Milk Of Magnesia) 30 ml PO DAILY PRN PRN PRN Reason: Constipation Melatonin (Melatonin) 3 mg PO QHS PRN PRN PRN Reason: INSOMNIA Multivitamins/Minerals (Multivitamin With Minerals (Bkc)) [facility] Last Admin: 06/14/20 08:24 Dose: 1 tablet Documented by: Ondansetron HCl (Zofran) 4 mg IV Q8H PRN PRN PRN Reason: NAUSEA/VOMITING Pantoprazole Sodium (Protonix) 20 mg PO DAILY [facility] Last Admin: 06/14/20 08:24 Dose: 20 mg Documented by: Paroxetine HCl (Paxil) 30 mg PO DAILY [facility] Prochlorperazine Edisylate (Compazine Iv) 5 mg IV Q4H PRN PRN PRN Reason: Breakthrough Nausea/Vomiting Psyllium Hydrophilic Mucilloid (Metamucil) 1 packet PO DAILY PRN PRN PRN Reason: Constipation Senna/Docusate Sodium (Senokot-S, Jannette-Colace) 2 tablet PO BID PRN PRN PRN Reason: Constipation Sodium Chloride () 10 - 40 ml IV UD PRN PRN Reason: SALINE FLUSH Thiamine HCl (Vitamin B1) [facility] Stop: 06/16/20 17:01 Last Admin: 06/14/20 08:24 Dose: 100 mg Documented by: Throat Lozenges (Cepacol Sore Throat Lozenge) 1 lozenge MUCOUS MEM Q2H PRN PRN PRN Reason: SORE THROAT Discharge Diet: Low fat/ Low Cholesterol, Carb Control Diet Discharge Activity: Return to Normal Activity Call your doctor if you observe: Shortness of breath, Dizziness, Fainting spells, Chest pain Home Medications: Medications to take at Discharge Adalimumab [Humira Pen] 40 mg SQ UD 06/13/20 Atorvastatin Calcium 80 mg PO DAILY 06/13/20 Liraglutide [Victoza] 1.8 mg SQ DAILY 06/13/20 Omeprazole [Prilosec] 20 mg PO DAILY 06/13/20 Paroxetine HCl [Paxil] 30 mg PO DAILY 06/13/20 Saxagliptin HCl [Onglyza] 5 mg PO DAILY 06/13/20 Aspirin E.C. [Ecotrin] 81 mg PO DAILY@0800 #30 tab 06/14/20 Clopidogrel Bisulfate [Plavix] 75 mg PO DAILY #21 tab 06/14/20 Lisinopril 40 mg PO DAILY #30 tab 06/14/20 metFORMIN (XR) [Glucophage Xr] 500 mg PO DAILY #14 tab 06/14/20 Following Prescriptions Were Given to Patient: Aspirin E.C. [Ecotrin] 81 mg PO DAILY@0800 #30 tab Transmission Status: Received by [id number] metFORMIN (XR) [Glucophage Xr] 500 mg PO DAILY #14 tab Transmission Status: Received by [id number] Lisinopril 40 mg PO DAILY #30 tab Transmission Status: Received by [facility] [id number] Clopidogrel Bisulfate [Plavix] 75 mg PO DAILY #21 tab Transmission Status: Received by [id number] Primary Care Physician: Bhavik Ortega [Primary Care Provider] - Please follow up with your Primary Care Physician in: 1 Week Please Follow Up With: Umang Cadet MD - Neurology When: 2 Weeks Disposition: Home Minutes spent on discharge:: 35 Patient Condition:: Stable Medical Necessity - Tobacco Use Smoking Status: Former smoker Tobacco Use: Cigarettes Meaningful Use Info Meaningful Use Diagnoses (Choose all that apply): Ischemic CVA - CVA Therapy Assessed for PT,OT and/or ST?: Yes - Ischemic Stroke Antithrombotic order at d/c?: Yes Dx of Atrial fib/flutter?: No Statins at discharge?: Yes Primary Dx Acute Ischemic CVA?: Yes IV tPA ordered during stay?: No Reason IV t-PA not ordered: Medical Contraindication <Kerry Jacinto - Last Filed: 06/14/20 13:51> Discharge Date and Diagnosis - Secondary Discharge Diagnosis Chronic Problems: Chronic Problems HTN (hypertension) (Chronic) HLD (hyperlipidemia) (Chronic) Type 2 diabetes mellitus (Chronic) Psoriasis (Chronic) OCD (obsessive compulsive disorder) (Chronic) GERD (gastroesophageal reflux disease) (Chronic) Tobacco dependence (Chronic) Alcohol dependence (Chronic) Hospital Course and Treatment Summary of Care Provided: Patient seen by JENNIFER Garcia under my supervision. The patient is a 44 year old M with a past medical history which includes hypertension, hyperlipidemia, and type 2 diabetes mellitus was admitted to the ED on 06/14/2020 with a complaint of right leg heaviness and weakness which started about 8 hours prior to admission. He also had assisted slurring of his speech and said his right arm had felt mildly clumsy at work. Patient also had an extensive smoking history but said he had quit about [address] of the brain done was negative. CTA of the head and neck was also unremarkable. MRI of the brain done showed acute lacunar infarcts in the left basal ganglia and deep parietal white matter. He was managed for acute stroke. He was started on aspirin and high intensity statin. Neurology was consulted. Neurology reviewed patient and per neurology, he was given a loading dose of Plavix 300 mg daily and is continue aspirin and Plavix for 21 days and subsequently to continue with only aspirin. He is also to continue with high intensity statin and counseled to continue staying off of nicotine. Patient remained stable and was discharged on 08/23/2020. He is follow-up with his primary care doctor and with neurology on outpatient basis. [] Patient seen and examined. He had no complaints. The right lower extremity weakness had improved. We will symptoms otherwise negative. Labs and vitals reviewed. Home medication reviewed and reconciled. O/E: Vital Signs Temp Pulse Resp BP Pulse Ox 98.6 F 81 18 129/94 H 90 06/14/20 10:50 06/14/20 12:09 06/14/20 10:50 06/14/20 10:50 06/14/20 13:42 General: Alert, Oriented x3, Cooperative HEENT: Atraumatic, PERRLA, EOMI, Normocephalic Neck: Supple, No JVD, Negative Carotid Bruits Lungs: Clear to auscultation, Normal air movement Cardiovascular: Regular rate, No murmurs Abdomen: Bowel Sounds Present, Soft, Non Tender Extremities: No clubbing, No cyanosis, No edema, Capillary Refill Less than 3 Seconds Skin: No rashes, No breakdown Musculoskeletal: No Tenderness to Palpation of Joints or Extremities Neurological: Cranial nerves II-XII grossly intact, power in UEs and LEs-5/5, no numbness or tingling Psych/Mental Status: Normal Affect, Appropriate Plan is to discharge home today on p.o. aspirin and Plavix as well as high intensity statin. Be on metformin and counseled to stay off of nicotine. He was also counseled to quit drinking. Rest as per JENNIFER Garcia's notes which I reviewed and endorsed. - Physical Exam Vitals/I&O's: Vital Signs Temp Pulse Resp BP Pulse Ox 98.6 F 90 18 129/94 H 96 06/14/20 10:50 06/14/20 10:50 06/14/20 10:50 06/14/20 10:50 06/14/20 10:50 Oxygen Flow Rate (L/min) 2 Oxygen Delivery Method Room Air Weight: 169 lb 12.095 oz Body Mass Index (BMI) 25.8 Finger Stick Blood Glucose 186 Intake and Output for Last 24 Hours 06/12/20 06/13/20 06/14/20 23:59 23:59 23:59 Intake Total 218.33 / 218.33 1306.67 / 1306.67 Output Total 0 / 0 Balance 218.33 / 218.33 1306.67 / 1306.67 Laboratory Results 06/13/20 14:55: WBC 6.0, RBC 4.81, Hgb 16.0, Hct 46.3, MCV 96.3 H, MCH 33.3 H, MCHC 34.6, RDW Std Deviation 41.8, RDW Coeff of Kayleen 11.9, Plt Count 236, MPV 9.7, Immature Gran % (Auto) 0.500, Neut % (Auto) 53.1, Lymph % (Auto) 32.2, Clay % (Auto) 12.5 H, Eos % (Auto) 1.0, Baso % (Auto) 0.7, Absolute Neuts (auto) 3.2, Absolute Lymphs (auto) 1.94, Nucleated RBC % 0 06/13/20 14:55: PT 12.6, INR 1.0, APTT 21.7 L 06/13/20 14:55: Sodium 139, Potassium 4.4, Chloride 106, Carbon Dioxide 24.0, Anion Gap 9, BUN 22 H, Creatinine 0.77, Estim Creat Clear Calc 115.97, Est GFR (MDRD) Af Amer 139, Est GFR (MDRD) Non-Af 115, BUN/Creatinine Ratio 28.5 H, Glucose 185 H, Calcium 9.7, Troponin I < 0.015 06/13/20 14:55: Phosphorus 3.6, Magnesium 1.7 06/13/20 15:06: POC Glucose 186 H 06/13/20 21:16: Ethyl Alcohol 4.0 06/13/20 21:55: POC Glucose 230 H 06/14/20 06:22: WBC 4.7, RBC 4.53 L, Hgb 14.7, Hct 43.8, MCV 96.7 H, MCH 32.5 H, MCHC 33.6, RDW Std Deviation 42.5, RDW Coeff of Kayleen 11.9, Plt Count 212, MPV 9.5, Immature Gran % (Auto) 0.600, Neut % (Auto) 47.0, Lymph % (Auto) 36.6, Clay % (Auto) 12.6 H, Eos % (Auto) 2.6, Baso % (Auto) 0.6, Absolute Neuts (auto) 2.2, Absolute Lymphs (auto) 1.71, Nucleated RBC % 0 06/14/20 06:22: Sodium 139, Potassium 4.1, Chloride 105, Carbon Dioxide 26.0, Anion Gap 8, BUN 23 H, Creatinine 0.53 L, Estim Creat Clear Calc 168.49, Est GFR (MDRD) Af Amer 214, Est GFR (MDRD) Non-Af 177, BUN/Creatinine Ratio 43.3 H, Glucose 181 H, Calcium 8.5, Total Bilirubin 0.30, AST 24, ALT 34, Alkaline Phosphatase 38 L, Total Protein 6.3 L, Albumin 3.3, Globulin 3.0, Albumin/Globulin Ratio 1.1, Triglycerides 420 H, Cholesterol 224 H, LDL Cholesterol TNP, VLDL Cholesterol TNP, HDL Cholesterol 46, TSH 2.52, Free T4 0.99 06/14/20 06:22: Hemoglobin A1c 9.2 H 06/14/20 06:32: POC Glucose 186 H 06/14/20 13:00: POC Glucose 177 H Current Medications Acetaminophen (Tylenol) 650 mg PO Q6H PRN PRN PRN Reason: Pain Score 1-10/Temp > 100.7 F Al Hydroxide/Mg Hydroxide (Mylanta Ii) 30 ml PO Q6H PRN PRN PRN Reason: Gastric Burning Albuterol Sulfate (Ventolin Aerosols) 2.5 mg INHALATION Q2H PRN PRN PRN Reason: Dyspnea, wheezing Aspirin (Aspirin, Baby) 81 mg PO DAILY@0800 [facility] Last Admin: 06/14/20 08:24 Dose: 81 mg Documented by: Atorvastatin Calcium (Lipitor) 80 mg PO QHS [facility] Enoxaparin Sodium (Lovenox) 40 mg SC DAILY [facility] Last Admin: 06/14/20 11:01 Dose: Not Given Documented by: Folic Acid (Folic Acid) 1 mg PO DAILY@0800 [facility] Stop: 06/16/20 08:01 Last Admin: 06/14/20 08:24 Dose: 1 mg Documented by: Guaifenesin (Robitussin) 20 ml PO Q4H PRN PRN PRN Reason: COUGH Hydralazine HCl (Apresoline Iv) 5 mg IV Q30M PRN PRN Reason: to maintain BP goals Sodium Chloride () 250 mls @ 15 mls/hr IV .[id number] PRN PRN Reason: Saline Flush Sodium Chloride () 250 mls @ 15 mls/hr IV .[id number] PRN PRN Reason: Additional IVPB Infusion Insulin Human Lispro (Humalog Kwikpen (Bkc)) 0 unit SC [facility]; Protocol Last Admin: 06/14/20 13:04 Dose: 1 units Documented by: Labetalol HCl (Trandate) 10 - 20 mg IV Q10M PRN PRN PRN Reason: to Maintain BP Goals Lorazepam (Ativan) 2 mg PO Q2H PRN PRN; Protocol PRN Reason: CIWA score > 8 but <15 Lorazepam (Ativan) 2 mg PO UD PRN; Protocol PRN Reason: CIWA score >/=15. Lorazepam (Ativan) 2 mg IV Q2H PRN PRN; Protocol PRN Reason: CIWA score > 8 but <15 Lorazepam (Ativan) 2 mg IV UD PRN; Protocol PRN Reason: CIWA score >/=15. Magnesium Hydroxide (Milk Of Magnesia) 30 ml PO DAILY PRN PRN PRN Reason: Constipation Melatonin (Melatonin) 3 mg PO QHS PRN PRN PRN Reason: INSOMNIA Multivitamins/Minerals (Multivitamin With Minerals (Bkc)) [facility] Last Admin: 06/14/20 08:24 Dose: 1 tablet Documented by: Ondansetron HCl (Zofran) 4 mg IV Q8H PRN PRN PRN Reason: NAUSEA/VOMITING Pantoprazole Sodium (Protonix) 20 mg PO DAILY [facility] Last Admin: 06/14/20 08:24 Dose: 20 mg Documented by: Paroxetine HCl (Paxil) 30 mg PO DAILY [facility] Prochlorperazine Edisylate (Compazine Iv) 5 mg IV Q4H PRN PRN PRN Reason: Breakthrough Nausea/Vomiting Psyllium Hydrophilic Mucilloid (Metamucil) 1 packet PO DAILY PRN PRN PRN Reason: Constipation Senna/Docusate Sodium (Senokot-S, Jannette-Colace) 2 tablet PO BID PRN PRN PRN Reason: Constipation Sodium Chloride () 10 - 40 ml IV UD PRN PRN Reason: SALINE FLUSH Thiamine HCl (Vitamin B1) [facility] Stop: 06/16/20 17:01 Last Admin: 06/14/20 08:24 Dose: 100 mg Documented by: Throat Lozenges (Cepacol Sore Throat Lozenge) 1 lozenge MUCOUS MEM Q2H PRN PRN PRN Reason: SORE THROAT OBSV E&M: 45783 Observation care discharge
--- NOTE | 2020-06-14 12:03 | PHA.DC.MC ---
Pharmacy Service has performed discharge medication reconciliation and counseling for this patient. 1. ASPIRIN 81MG PO DAILYCM 2. CLOPIDOGREL 75MG PO DAILY X 21 DAYS The patient's discharge medication list was reviewed for discrepancies and discrepancies were resolved. Home Medications Adalimumab [Humira Pen] 40 mg SQ UD 06/13/20 Atorvastatin Calcium 80 mg PO DAILY 06/13/20 Liraglutide [Victoza] 1.8 mg SQ DAILY 06/13/20 Omeprazole [Prilosec] 20 mg PO DAILY 06/13/20 Paroxetine HCl [Paxil] 30 mg PO DAILY 06/13/20 Saxagliptin HCl [Onglyza] 5 mg PO DAILY 06/13/20 Aspirin E.C. [Ecotrin] 81 mg PO DAILY@0800 #30 tab 06/14/20 Clopidogrel Bisulfate [Plavix] 75 mg PO DAILY #21 tab 06/14/20 Lisinopril 40 mg PO DAILY #30 tab 06/14/20 metFORMIN (XR) [Glucophage Xr] 500 mg PO DAILY #14 tab 06/14/20 The patient was counseled on the following discharge medications and changes in medications for homegoing were reviewed. The Reason for Use, instructions for use, and potential side effects were reviewed for all new medications. The patient's questions regarding all of their medications were answered. The patient was able to verbally demonstrate an understanding of their discharge medications. Patient counseled by pharmacy retail support specialist, Eleanor.
[2020-06-14 13:11] LABS: Bedside Glucose 177 mg/dL (70-110)
--- NOTE | 2020-06-14 13:36 | PCM.WORK.EX ---
Work/School Excuse Work/School Excuse for:: Patient Please excuse this person from:: Work From: 06/13/20 through: 06/17/20 - May return 06/18 with no restrictions
--- NOTE | 2020-06-17 07:48 | CASEMGMT ---
SW completed a PHQ 9 with patient on Wednesday06-14-2020. He scored a 6. However, he does not attribute his feeling tired or having little energy or overeating to depression. He declines any need for mental health resources at this time. Shanita TITUS MSW
--- NOTE | 2020-06-17 08:55 | CASEMGMT ---
Assessment- SW completed assessment with patient at bedside. SW also verified addresses and phone numbers for patient and his contact agent. His significant other was also at bedside and patient was fine with talking in front of her. Living situation- Patient lives with his significant other in a 1 level home with 2 entry steps. PCP: Dr Bhavik Ortega MD Specialists: Dr Dewey Lloyd Pharmacy: [facility] DME: None ADL's/IADL's: Patient is independent in all activities of daily living. He works part time receptionist. He drives, manages his own medications, etc. Past SNF/rehab: None Past HH: None LW: None POA: None Plan: SW did talk with patient about his ETOH use. He plans on cutting back, but denies any need for resources. He denied any d/c needs. Shanita TITUS POURER BUGGY LADLE
== END 2020-06-14 14:18 | disposition home or self-care (01) | DRG 65 ==
LOC: ED 20:04 → PCU 20:19
PROVIDERS: Admitting Provider Family Medicine; Emergency Provider Emergency Medicine; PCP Family Medicine; Visit Provider Student in an Organized Health Care Education/Training Program
DX: I63.81 Other cerebral infarction due to occlusion or stenosis of small artery (principal); G81.91 Hemiplegia, unspecified affecting right dominant side; I10 Essential (primary) hypertension; R29.701 NIHSS score 1; E11.9 Type 2 diabetes mellitus without complications; T38.3X6A Underdosing of insulin and oral hypoglycemic [antidiabetic] drugs, initial encounter; Z91.128 Patient's intentional underdosing of medication regimen for other reason; Y92.9 Unspecified place or not applicable; E78.5 Hyperlipidemia, unspecified; L40.9 Psoriasis, unspecified; K21.9 Gastro-esophageal reflux disease without esophagitis; F10.20 Alcohol dependence, uncomplicated; F42.9 Obsessive-compulsive disorder, unspecified; F32.9 Major depressive disorder, single episode, unspecified; F41.9 Anxiety disorder, unspecified; Z79.84 Long term (current) use of oral hypoglycemic drugs; Z79.899 Other long term (current) drug therapy; Z87.891 Personal history of nicotine dependence
CPT/HCPCS: 36415; 70450; 70496; 70498; 70551; 71045; 80048; 80053; 80061; 80320; 82962; 83036; 83735; 84100; 84439; 84443; 84484; 85025; 85610; 85730; 93005; 93306; 94762; 97162; 97166; 97802; 99251; 99285; 99406; J7030; Q9967; A4216; G0463; G0480

== ENCOUNTER 2021-10-11 23:33 | Emergency (ER) | payer OTHER, SELFPAY ==
[2021-10-11 23:34] VITALS: BP 184/149; PULSE 77; RESP 18; TEMP 35.9; O2SAT 97; BMI 26.0
[2021-10-11 23:41] VITALS: PULSE 77; RESP 14; O2SAT 96
--- NOTE | 2021-10-11 23:41 | EKG12_ITS ---
Test Reason : ETOH INTOX Blood Pressure : / mmHG Vent. Rate : 077 BPM Atrial Rate : 077 BPM P-R Int : 156 ms QRS Dur : 098 ms QT Int : 402 ms P-R-T Axes : 063 061 040 degrees QTc Int : 454 ms Normal sinus rhythm Normal ECG When compared with ECG of 13-JUN-2020 15:33, No significant change was found Confirmed by FLACO MANDUJANO, SHILPA ([id number]), editor dictionary ALEXIS COFFEY ([id number]) on 10/17/2021 8:21:09 AM Referred By: SERGIO Confirmed By:JAMES SAM MD
--- NOTE | 2021-10-11 23:42 | EDS_ITS ---
HPI History of Present Illness Chief Complaint: ETOH Intox Detail of Chief Complaint: Syncope Informant: patient and spouse/S.O. Onset/Context/Timing Onset: Today and Hours Context: Sudden Onset Timing: Lasts (A minute or 2) Quality: Patient did not feel well, became nauseous with pallor and diaphoresis and Location: Home Current Severity: Gone Maximum Severity: Severe Worsened by: Hypovolemia in combination with alcohol use and diabetes Associated Symptoms Associated Symptoms: Sense of lightheadedness followed by nausea, diaphoresis and pallor Narrative Narrative: Patient is a 46-year-old male with history of hypertension, hyperlipidemia, type 2 diabetes and GERD. Per he had a stroke approximately 1 year ago. He does smoke and does drink. He admits to having 4 or 5 IPAs prior to eating his steak dinner. He was sitting in a chair. assisted him to the restroom when he complained of being lightheaded. He then became pale, sweaty and passed out. She was concerned because she did not feel his pulse. There was no seizure activity. He presently has no symptoms. He denies black or maroon-colored stool the past week. He denies cardiac or respiratory symptoms past week. He denies exertional symptoms. He denies history of VTE. He denies leg pain, swelling discoloration. Prior similar symptoms: No Recent Illness/Hospitalization: No [facility] Medical History Diabetes High blood cholesterol level High blood pressure Stroke Home Medications atorvastatin 80 mg PO DAILY 06/13/20 [History Last Taken 06/13/20] omeprazole 20 mg PO DAILY 06/13/20 [History Last Taken 06/13/20] paroxetine HCl 30 mg PO DAILY 06/13/20 [History Last Taken 06/13/20] saxagliptin 5 mg PO DAILY 06/13/20 [History Last Taken 06/13/20] aspirin 81 mg PO DAILY@0800 #30 tab 06/14/20 [Rx Last Taken Unknown] lisinopril 40 mg PO DAILY #30 tab 06/14/20 [Rx Last Taken Unknown] metformin 500 mg PO DAILY #14 tab 06/14/20 [Rx Last Taken Unknown] Allergy/AdvReac Type Severity Reaction Status Date / Time nickel AdvReac PT UNSURE Verified 06/13/20 14:55 OF REACTION Social History (Updated 10/11/21 @ 23:[address] Jose Foote MD) household members: spouse Smoking Status: Current every day smoker tobacco type: cigarettes alcohol intake: current alcohol intake frequency: other substance use type: does not use ROS ROS ED Constitutional Constitutional ED: Denies chills, fever(s), subjective, sweats or weight loss Eyes Eyes: Denies blurry vision, change in vision or diplopia ENT ENT ED: Denies ear pain, rhinorrhea or sore throat Cardiovascular Cardiovascular: Denies chest pain, palpitations or racing heartbeat Respiratory/Chest Respiratory/Chest: Denies cough, dyspnea or dyspnea on exertion Gastrointestinal Gastrointestinal: Reports nausea; Denies abdominal pain, constipation, diarrhea, melena or vomiting Genitourinary Genitourinary ED: Denies dysuria, hematuria or urinary frequency Musculoskeletal Musculoskeletal: Denies arthralgias, back pain or myalgias Integumentary Denies rash Neurologic Neurologic: Denies headache(s), paresthesias or weakness Endocrine Endocrinology: Denies polydipsia, polyphagia or polyuria Hematologic/Lymphatic Hematologic/Lymphatic: Denies anemia or easy bleeding EXAM Physical Exam Const Vital Signs: 10/11/21 23:34 10/11/21 23:41 Temperature 96.7 F L Temperature Source Temporal Pulse Rate 77 77 Respiratory Rate 18 14 Blood Pressure 184/149 H Blood Pressure Mean 160 Pulse Ox 97 96 Oxygen Delivery Method Room Air Room Air Positive well nourished and well developed General Appearance ED: well developed and NAD; Negative for cyanotic or diaphoretic HEENT Reports TM's clear and dry mucous membranes Negative for trauma or tenderness Tympanic Membrane ED: Yes TM's clear Mouth ED: Yes dry mucous membranes Mouth: dry mucous membranes Eyes PERRL and EOMs intact bilaterally General Eye ED: Negative for pale conjunctiva or scleral icterus Neck no lymphadenopathy, supple and no JVD Resp normal respiratory effort and clear to auscultation bilaterally Effort and Inspection: Negative for pain with movement Cardio regular rate, regular rhythm, S1 normal heart sound, S2 normal heart sound and no murmurs GI normal to inspection, nondistended, normoactive bowel sounds, non-tender and non-distended Palpation: soft Back/Spine no CVA tenderness Extremity normal to inspection Extremity Narrative: There is no asymmetry, swelling, discoloration, leg vein distention, palpable cords or tenderness along the distribution of the deep venous system.. DP pulses palpable bilaterally General Extremety ED: Negative for edema or tenderness General Extremity: Negative for edema Neuro oriented x3, CN's II-XII intact bilaterally and no sensory deficits noted Sensorium / Orientation: alert Motor Exam: strength 5/5 throughout Psych mental status grossly normal MDM MDM MDM Narrative Medical decision making narrative: Since he is diabetic with multiple medical problems will obtain EKG to rule out ischemic cardiac disease. H&H to rule out anemia and BMP to assess blood sugar, renal function and BUN to creatinine ratio. Blood pressure is elevated. Patient is agitated. Will reassess. If his blood pressure remains markedly elevated will treat with IV antihypertensive medication.Patient presents with symptoms consistent with vasovagal. Patient has evidence of dehydration with prerenal azotemia. Based on history, normal EKG and description by patient had a vasovagal syncopal episode. This may have been exacerbated by the fact that he had poor oral intake throughout the day. Since patient's work-up is essentially unremarkable he will be discharged home Lab Data Attestation: I reviewed the patient's lab results. Lab results narrative: CBC without differential is unremarkable. Basic metabolic panel is remarkable for a glucose of 158 with elevated BUN to creatinine ratio. Estimated GFR is 127. CO2 is 19. Anion gap is normal. Labs: Laboratory Results - last 24 hr 10/11/21 10/11/21 10/11/21 23:39 23:50 23:50 WBC 4.9 RBC 4.66 Hgb 15.2 Hct 44.5 MCV 95.5 H MCH 32.6 H MCHC 34.2 RDW Std Deviation 42.2 RDW Coeff of Kayleen 12.1 Plt Count 210 MPV 9.5 Sodium 138 Potassium 4.9 Chloride 106 Carbon Dioxide 19.0 L Anion Gap 13 BUN 15 Creatinine 0.70 Estim Creat Clear Calc 124.86 Est GFR (MDRD) Af Amer 154 Est GFR (MDRD) Non-Af 127 BUN/Creatinine Ratio 21.3 H Glucose 158 H Calcium 9.0 POC Glucose 148 H EKG Initial EKG: Attestation: I personally reviewed and interpreted this EKG as follows: Interpretation: Sinus Rhythm (Ventricular rate is 77. EKG is normal. NC interval is 156 ms. QS duration 90 ms. QT durations 402 ms. [place] is normal.) Discharge Plan Triage Chief Complaint: ETOH Intox ED Provider: Jose Foote Dx/Rx/DC Orders Clinical Impression: Syncope, vasovagal, Acute prerenal azotemia, Mild dehydration, Hyperglycemia due to type 2 diabetes mellitus Instructions: ED Dehydration (Adult), ED Fainting, Vagal Reaction Prescriptions: No Action atorvastatin 80 MG tablet 80 mg PO DAILY RF: 0 paroxetine HCl 30 MG tablet 30 mg PO DAILY RF: 0 omeprazole 20 MG capsule 20 mg PO DAILY RF: 0 saxagliptin 5 MG tablet 5 mg PO DAILY RF: 0 aspirin 81 MG tablet 81 mg PO DAILY@0800 Qty: 30 RF: 0 metformin 500 MG tablet 500 mg PO DAILY Qty: 14 RF: 0 lisinopril 40 MG tablet 40 mg PO DAILY Qty: 30 RF: 0 Primary Care Provider: Bhavik Ortega Referrals: Bhavik Ortega [Primary Care Provider] - As Needed Disposition Disposition: Home, Self Care
[2021-10-11 23:46] LABS: Bedside Glucose 148 mg/dL (70-110)
[2021-10-11] MEDS: 0.9% Normal Saline 1,000 ML 1000 ML IV (23:49)
[2021-10-12 00:13] LABS: Hematocrit 44.5 % (40-54); Hemoglobin 15.2 g/dL (13.0-16.5); Mean Corp Hgb Conc 34.2 g/dL (32-36); Mean Corpuscular Hgb 32.6 pg (27.0-32.0); Mean Corpuscular Volume 95.5 fL (80-94); Mean Platelet Vol. 9.5 fl (6.2-12.0); Platelet Count 210 K/mm3 (150-450); RBC Distribution Width CV 12.1 % (11.6-14.6); RBC Distribution Width SD 42.2 fl (35.1-43.9); Red Blood Count 4.66 M/mm3 (4.6-6.2); White Blood Count 4.9 K/mm3 (4.4-11.0)
[2021-10-12 00:15] LABS: Anion Gap 13 (5-15); BUN 15 mg/dL (7-18); BUN/Creat Ratio 21.3 RATIO (10-20); Chloride 106 mmol/L (98-107); EST Glomerular Filtration Rate 127 mL/min (>60); Est Glom Filt Rate - Afr Amer 154 mL/min (>60); Estimated Creatinine Clearance 124.86 ml/min; Glucose 158 mg/dL (74-106); Potassium 4.9 mmol/L (3.5-5.1); Sodium Level 138 mmol/L (136-145)
[2021-10-12 01:04] VITALS: BP 98/59; PULSE 70; RESP 14; O2SAT 93
== END 2021-10-12 01:15 | disposition home or self-care (01) ==
PROVIDERS: Emergency Provider Emergency Medicine; PCP Family Medicine; Visit Provider Emergency Medicine
DX: R55 Syncope and collapse (principal); N17.9 Acute kidney failure, unspecified; E11.65 Type 2 diabetes mellitus with hyperglycemia; E86.0 Dehydration; F17.210 Nicotine dependence, cigarettes, uncomplicated; E78.00 Pure hypercholesterolemia, unspecified; I10 Essential (primary) hypertension; K21.9 Gastro-esophageal reflux disease without esophagitis; Z79.82 Long term (current) use of aspirin; Z79.84 Long term (current) use of oral hypoglycemic drugs; Z79.899 Other long term (current) drug therapy; Z86.73 Personal history of transient ischemic attack (TIA), and cerebral infarction without residual deficits
CPT/HCPCS: 80048; 82962; 85027; 93005; 96360; 99285